=== PATIENT | female | born 1960 | race American Indian/Alaskan Native ===

== ENCOUNTER 2017-07-06 07:39 | Day surgery (SDC) | payer OTHER, BC ==
[2017-07-06 08:32] VITALS: RESP 18
[2017-07-06 08:49] VITALS: BMI 30.4
[2017-07-06] MEDS ORDERED: Lidocaine 1% Inj (20ml) ONE (11:05)
[2017-07-06] MEDS ORDERED: Bacitracin Ointment 30 GM TUBE ONE (11:06)
[2017-07-06] MEDS ORDERED: Propofol 10 mg/ml Inj (20 ML) ONE ×2 (11:51→12:32)
[2017-07-06] MEDS ORDERED: Phenylephrine 10 mg/ml Inj ONE (11:54)
[2017-07-06] MEDS ORDERED: Lactated Ringer's 1,000 ML IV ONE (12:21)
[2017-07-06] MEDS ORDERED: Midazolam 2 MG/2 ML VIAL ONE (12:22)
[2017-07-06] MEDS ORDERED: Dexamethasone 4 mg/1 ml ONE (12:30)
[2017-07-06] MEDS ORDERED: methylPREDNISolone Depo 80 mg/ml Inj ONE (12:43)
[2017-07-06] MEDS ORDERED: Bupivacaine HCl 0.25% PF (30 ml) Inj ONE (12:44)
[2017-07-06] MEDS ORDERED: methylPREDNISolone Depo 80 mg/ml Inj IM ONE (13:20)
[2017-07-06] MEDS ORDERED: Oxycodone/Acetaminophen 5/325 mg Tab PO PRN (13:28)
--- NOTE | 2017-07-06 13:28 | PCM.SURG1 ---
Surgeon's Initial Post Op Note - Surgeon's Notes Surgeon: Eileen Wilks MD Comparative Sociology Professor: Shruti Ferrari PA-C Type of Anesthesia: General Endo Pre-Operative Diagnosis: Right knee meniscus tear Operative Findings: see op report Post-Operative Diagnosis: same as pre-op dx Operation Performed: Right knee arthroscopy, partial medial and lateral meniscectomy, synovectomy Specimen/Specimens Removed: none Estimated Blood Loss: EBL {In ML}: 5 Date of Surgery/Procedure: 07/06/17 Time of Surgery/Procedure: 12:30
[2017-07-06] MEDS ORDERED: Albuterol 0.083% Inhal Sol (2.5 mg/3 mL) UD ONE (13:31)
[2017-07-06] MEDS ORDERED: HYDROmorphone 0.5 mg/0.5 ml ISec IVP PRN (13:33)
[2017-07-06] MEDS ORDERED: Albuterol 0.083% Inhal Sol (2.5 mg/3 mL) UD INH ONE (13:33)
[2017-07-06 15:00] VITALS: TEMP 98
[2017-07-06] MEDS ORDERED: Oxycodone/Acetaminophen 5/325 mg Tab PO ONE (15:15)
[2017-07-06 15:48] VITALS: BP 149/60; PULSE 67; O2SAT 95
--- NOTE | 2017-07-07 01:25 | OP ---
ATTENDING PHYSICIAN: Eileen Wilks MD FIRER WATERTENDER: Shruti Ferrari PA-C PREOPERATIVE DIAGNOSES: 1. Right knee meniscal tear. 2. Effusion. 3. Synovitis. POSTOPERATIVE DIAGNOSES: 1. Right knee major synovitis of all 3 compartments. 2. Complex, displaced lateral meniscal tear. 3. 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 4. Osteophytes of the medial trochlea. 5. Anterior patellofemoral adhesions. PROCEDURES: 1. Right knee arthroscopy, partial lateral meniscectomy. 2. Chondroplasty of the trochlea and lateral tibial plateau. 3. Osteophyte removal of the medial trochlea. 4. Major synovectomy of all 3 compartments. 5. Anterior lysis of adhesions. 6. Injection of the large joint. ANESTHESIA TYPE: General. ESTIMATED BLOOD LOSS: 10 mL. SPECIMENS: None. COMPLICATIONS: None. INDICATIONS: After failing a course of nonoperative therapy, the patient elected to undergo the above procedure. In the office, the risks and possible complications of knee arthroscopy were discussed in detail with the patient. These risks include but are not limited to continued pain, lack of motion, infection, vascular injury, DVT/PE, nerve injury including peroneal nerve dysfunction, reflex sympathetic dystrophy, compartment syndrome, unforeseen medical and/or anesthesia complications, limb loss, and even . The patient expressed an understanding of the risks and possible benefits of the procedure, and is also aware of the alternatives to surgery. An informed consent was obtained, and was checked immediately preop. The patient's knee injuries requiring surgery are the result of an accident/incident that occurred at work. PROCEDURE: The patient was correctly identified in the holding area and the right knee was marked with the surgeon's initials. The patient was transported to the operating room and placed in the supine position, general anesthesia was obtained. A preoperative orthopedic exam revealed trace effusion, range of motion is 5-110, stable to varus and valgus stress. The lower extremity was prepped and draped in the standard fashion, and the thigh was placed in an arthroscopic leg parry. A well-padded tourniquet was applied to the patient's thigh. Timeout was completed confirming the correct operative site. Esmarch was used to exsanguinate the leg and tourniquet was inflated to 300 mmHg. A standard anterolateral viewing portals were made with a #11 blade after subdermal 1% lidocaine with epinephrine injection. The knee was distended with normal saline and epinephrine in a 1:1,000,000 mixture, at an initial pressure of 35 mmHg. The arthroscope was inserted from the anterolateral portal and moved into the medial compartment. Next, the anteromedial working portal was made with spinal needle localization. The arthroscopic probe was inserted, and all compartments of the knee were sequentially visualized. FINDINGS: Arthroscopic examination of the knee revealed: 1. Major synovitis of all 3 compartments. 2. Tear of the lateral meniscus. 3. Grade II chondromalacia of lateral tibial plateau and trochlea. 4. Osteophyte of the medial trochlea. 5. Anterior patellofemoral adhesion, ACL and PCL were intact. Partial lateral meniscectomy was performed with a combination of hand instruments and a 4.0-mm motorized shaver. The meniscus was debrided to a smooth, stable border with an excursion of less than 5 mm. The motorized shaver was used to mechanically debride the loose, fibrillated and fragmented chondral edges of the lateral tibial plateau and trochlea to a stable border. Extreme care was taken to not disrupt the adjacent chondral surface. The edges of injured chondral area were probed to ensure stability after the shaver was withdrawn from the knee. The motorized shaver was used to perform a synovectomy of the medial, lateral and patellofemoral compartments. The hypertrophic synovium was resected with minimal bleeding. No synovial incarceration was noted after synovectomy when the knee was put through a full passive range of motion. Due to injuries to the patellofemoral region resulting in organized scar and suprapatellar adhesions, a decision was made to perform and anterior interval release to decrease the patellofemoral joint reaction force and relieve pressures over the patella and trochlea. The synovectomy was carried over to the suprapatellar pouch and an anterior interval release was performed over the anterior compartment and the suprapatellar pouch with the motorized shaver. The anterior fat pad was released and debulked during this procedure. The inflow was shut off and the area checked for hemostasis. Small bleeders were coagulated with the radiofrequency device. At this point, the impinging osteophyte of the medial trochlea region was addressed utilizing the mechanical shaver. The area was debrided, and an abrasion chondroplasty was performed to prevent further impingement. Care was taken to preserve the surrounding intact chondral and osseous surfaces. The perimeter of the debrided area was inspected for loose chondral flaps, which were smoothed with the shaver. Finally, 1 mL of 40 mg Depo-Medrol mixed with 9 mL of 0.25% Marcaine was injected within the knee joint. CLOSURE: Portal closure was then accomplished utilizing sutures, and sterile dressing was applied consisting of Xeroform, 4 x 4's, sterile gauze, and two ABDs with a 6-inch Bart wrap. In addition, an "Ice-Man" automated portable cooling system pad was applied to the knee, over top of the sterile gauze and underneath the Bart wrap. This modality is medically necessary to maximize postoperative analgesia and to decrease the use of narcotic analgesics in the postoperative period. The sponge and needle count was correct at the end of the case, and all instruments were inspected and free of defects. Anesthesia was reversed and the patient was transferred to the recovery room in stable condition, having tolerated the procedure well. The attending surgeon was scrubbed and present throughout the critical portions of the case, including all of the intra-articular arthroscopic procedures. Post operatively, the patient will be weight bearing as tolerated and will utilize my standard post arthroscopy rehab protocol. The patient will be started on straight leg raising and quadriceps setting exercises in the recovery room and will progress to prone hangs as well as prone knee flexion exercises using an active assisted construct. During this procedure, I was assisted by Shruti Ferrari PA-C, who assisted in positioning the patient on the operating room table as well as transferring the patient from the operating room table to the recovery room stretcher. In addition, Shruti Ferrari PA-C, assisted me during the actual operative procedure by positioning the patient's extremity to allow for easier arthroscopic access to all areas of the joint. The presence of Shruti Ferrari PA-C, as my operative insurance administrative assistant, was medically necessary to ensure the utmost safety of the patient in the pre, intra- and postoperative periods. Eileen Wilks MD
== END 2017-07-06 16:00 | disposition home or self-care (01) ==
LOC: H.OPSURG 07:39
PROVIDERS: ATTEND Orthopaedic Surgery
DX: M65.9 Synovitis and tenosynovitis, unspecified (principal); S83.271A Complex tear of lateral meniscus, current injury, right knee, initial encounter; X58.XXXA Exposure to other specified factors, initial encounter
CPT/HCPCS: 20610; 29884; 94640; 97116; 97161; G0289; G8978; G8979; G8980; J0171; J0690; J1040; J1100; J1170; J2001; J2250; J2370; J2405; J2704; J2765; J3010; J7030; J7120